=== PATIENT | female | born 1990 | race African-American/Black ===

== ENCOUNTER 2021-07-07 11:51 | Emergency (ER) | payer MEDICAID ==
[2021-07-07] MEDS ORDERED: Sodium Chloride 0.9% 10 ML Syringe FLUSH PRN (12:21)
[2021-07-07] MEDS ORDERED: Alum Hydroxide/Mag Hydroxide 15 ML, Lidocaine 2% 15 ML PO ONE ×2 (12:23)
[2021-07-07] MEDS ORDERED: Ondansetron 4 MG/2 ML SDV IVPUSH STA (12:23)
[2021-07-07] MEDS ORDERED: Prochlorperazine 10 MG in Sodium Chloride 0.9% 50 ML IV STA (12:23)
--- NOTE | 2021-07-07 12:29 | EDM.PDOC ---
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 She has a history of hyperemesis gravidarum and she is taking Zofran ODT 4 mg and Phenergan 25. he also had vaginal spotting for 2 days which resolved. There is no fever, chills, cough/cold. 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 - Infectious Disease History Infectious Disease History: Reports: None Social & Family History - Tobacco Use Tobacco Use Status *Q: Unknown Ever Used Tobacco - Caffeine Use Caffeine Use: Reports: None ED ROS GENERAL - Review of Systems Review Of Systems: See Below Constitutional: Reports: No Symptoms HEENT: Reports: No Symptoms Respiratory: Reports: No Symptoms Cardiovascular: Reports: No Symptoms Endocrine: Reports: No Symptoms GI/Abdominal: Reports: Nausea, Vomiting : Reports: No Symptoms Musculoskeletal: Reports: No Symptoms Skin: Reports: No Symptoms ED EXAM - Physical Exam Exam: See Below Exam Limited By: No Limitations General Appearance: Alert, No Apparent Distress Ears: Normal External Exam, Normal Canal Nose: Normal Inspection, Normal Mucosa, No Blood Throat/Mouth: Normal Inspection Head: Atraumatic, Normocephalic Neck: Normal Inspection, Supple, Non-Tender, Full Range of Motion Respiratory/Chest: No Respiratory Distress, Lungs Clear, Normal Breath Sounds, No Accessory Muscle Use, Chest Non-Tender Cardiovascular: Normal Peripheral Pulses, Regular Rate, Rhythm, No Edema, No Gallop, No JVD, No Murmur GI/Abdominal Exam: Normal Bowel Sounds, Soft, Non-Tender, No Organomegaly, No Distention, No Abnormal Bruit Course - Vital Signs Text/Narrative:: lab result was reviewed and discussed with patient NS 2 L bolus Zofran 4 mg IV x1 Compazine 10 mg IV x1 TUMS 2 tabs chew and swallow OB US-see result Last Recorded V/S: Last Vital Signs Temp 36.8 C 07/07/21 11:54 Pulse 79 07/07/21 11:54 Resp 16 07/07/21 11:54 BP 136/82 07/07/21 11:54 Pulse Ox 98 07/07/21 11:54 - Orders/Labs/Meds Orders: Active Orders 24 hr Category Date Time Status Saline Lock Insert [OM.PC] Routine Oth 07/07/21 12:21 Ordered Labs: Laboratory Tests 07/07/21 07/07/21 07/07/21 Range/Units 13:24 13:24 14:30 WBC 11.8 H (3.0-10.3) x10-3/uL RBC 4.50 (3.60-5.20) x10(6)uL Hgb 12.0 (11.4-15.5) g/dL Hct 37.1 (34.2-48.2) % MCV 82.4 (76.7-100.5) fL MCH 26.6 (23.9-33.9) pg MCHC 32.3 (31.9-34.8) g/dL RDW 13.4 (12.3-16.5) % Plt Count 282 (151-488) x10(3)uL MPV 7.8 (7.1-12.4) fL Neut % (Auto) 84.5 H (30.8-76.2) % Lymph % (Auto) 9.0 L (18.4-52.1) % [place] % (Auto) 6.3 (4.4-15.7) % Eos % (Auto) 0.0 L (0.6-8.1) % Baso % (Auto) 0.2 (0.2-1.5) % Neut # (Auto) 10.0 H (1.5-6.3) x10-3/uL Lymph # (Auto) 1.1 (1.0-4.4) x10-3/uL [place] # (Auto) 0.7 (0.3-1.0) x10-3/uL Eos # (Auto) 0.0 (0.0-0.8) x10-3/uL Baso # (Auto) 0.0 (0.0-0.1) x10-3/uL Sodium 137 (135-145) mmol/L Potassium 3.8 (3.5-5.3) mmol/L Chloride 101 (100-110) mmol/L Carbon Dioxide 13 L (21-32) mmol/L BUN 3 L (7-18) mg/dL Creatinine 0.7 (0.55-1.02) mg/dL Est Cr Clr Drug Dosing 105.74 mL/min Estimated GFR (MDRD) > 60 (>60) BUN/Creatinine Ratio 4.3 L (9-20) Glucose 91 (80-116) mg/dL Calcium 9.8 (8.6-10.2) mg/dL Urine Color Yellow (YELLOW) Urine Appearance Slightly cloudy (CLEAR) Urine pH 5.0 (5.0-6.5) Ur Specific [place] 1.030 H (1.010-1.025) Urine Protein 30 H (NEGATIVE) mg/dL Urine Glucose (UA) Normal (NORMAL) mg/dL Urine Ketones 150 H (NEGATIVE) mg/dL Urine Occult Blood Moderate H (NEGATIVE) Urine Nitrite Negative (NEGATIVE) Urine Bilirubin Negative (NEGATIVE) Urine Urobilinogen 1 H (NEGATIVE) mg/dL Ur Leukocyte Esterase Negative (NEGATIVE) Urine RBC 0-5 (0-5) Urine WBC 0-5 (0-5) Ur Squamous Epith Cells Moderate H (NS,R,O) Urine Bacteria Moderate H (NS) Coarse Granular Casts Few H (NS) Meds: Medications Discontinued Medications Generic Name Dose Route Start Last Admin Trade Name Freq PRN Reason Stop Dose Admin Calcium Carbonate/Glycine 2,000 mg 07/07/21 14:17 07/07/21 14:21 Calcium Carbonate 500 Mg Tab.Chew PO 07/07/21 14:18 2,000 mg ONETIME ONE Administration Al Hydroxide/Mg Hydroxide 15 0 ml 07/07/21 12:23 07/07/21 13:09 ml/ Lidocaine HCl 15 ml PO 07/07/21 12:24 15 ml ONETIME ONE Administration Sodium Chloride 2,000 mls @ 999 mls/hr 07/07/21 12:30 07/07/21 13:07 Normal Saline IV 999 mls/hr ASDIRECTED MAGGIE Administration Prochlorperazine Edisylate 10 52 mls @ 150 mls/hr 07/07/21 12:23 07/07/21 13:07 mg/ Sodium Chloride IV 07/07/21 12:43 150 mls/hr NOW STA Administration Ondansetron HCl 4 mg 07/07/21 12:23 07/07/21 13:07 Ondansetron 4 Mg/2 Ml Sdv IVPUSH 07/07/21 12:24 4 mg NOW STA Administration Sodium Chloride 10 ml 07/07/21 12:21 07/07/21 13:07 Sodium Chloride 0.9% 10 Ml Syringe FLUSH 10 ml ASDIRECTED PRN Administration Keep Vein Open Departure - Departure Time of Disposition: 15:00 Disposition: Home, Self-Care 01 Condition: Good Clinical Impression: Hyperemesis gravidarum, Spotting affecting in second trimester, GERD (gastroesophageal reflux disease) - Discharge Information Prescriptions: Promethazine [Phenergan] 25 mg PO Q8H PRN #30 tab PRN Reason: Nausea Ondansetron [Zofran ODT] 4 mg PO Q4H PRN #10 tab.dis PRN Reason: Nausea Instructions: Hyperemesis Gravidarum, Vaginal Bleeding During , First Trimester, [id number] Referrals: PCP,None [Primary Care Provider] - Forms: ED Department Discharge Additional Instructions: Please read discharge instructions on hyperemesis gravidarum and spotting during prenancy [place] diet TUMS extra strength, chew and swallow 2-3 tablets as needed whenever you have a heart burn Zofran ODT 4 mg every 4 hours as needed for nausea Phenergan 25 mg every 8 hours as needed for nausea Follow up with your OB doctor this week. Sepsis Event Note (ED) - Evaluation Sepsis Screening Result: No Definite Risk - Focused Exam Vital Signs: Vital Signs Temp Pulse Resp BP Pulse Ox 07/07/21 11:54 36.8 C 79 16 136/82 98 - My Orders Last 24 Hours: My Active Orders 07/07/21 12:21 Saline Lock Insert [OM.PC] Routine - Assessment/Plan Last 24 Hours: My Active Orders 07/07/21 12:21 Saline Lock Insert [OM.PC] Routine
[2021-07-07] MEDS ORDERED: Sodium Chloride 0.9% 2,000 ML IV SCH (12:30)
--- NOTE | 2021-07-07 13:55 | US ---
INDICATION: Vaginal bleeding and cramping. OB ULTRASOUND, LIMITED: Multiple ultrasonic images with M-mode and 2D were obtained, 07/07/21 - no comparisons. A single intrauterine gestation was noted with longitudinal lie presentation, spine on the maternal left. Normal amount of amniotic fluid is seen. Placenta is posterior, grade I, without evidence of previa or abruption. The cervix was unremarkable. The cervix measured 4.0 cm. The heart rate was regular at 157 BPM. BPD, head circumference, abdominal circumference and femur length measurements were compatible with an average ultrasound gestational age of 24 weeks, 5 days, which is only 3 days ahead of the LMPEGA of 24 weeks, 2 days. The LMP for this patient is 01/18/21. The ARTURO by LMP is 10/27/21. The ARTURO by ultrasound is 10/22/21. IMPRESSION: Essentially normal IUP. No bleeding site is identified. Normal- appearing gestation of approximately 24 weeks, 5 days, only 3 days ahead of the LMPEGA. Report was called to Dr. Rico immediately after the examination was completed. MTDD
[2021-07-07] MEDS ORDERED: Calcium Carbonate 500 MG Tab.Chew PO ONE (14:17)
== END 2021-07-07 15:28 | disposition home or self-care (01) ==
LOC: FB.ED 11:51
DX: O21.0 Mild hyperemesis gravidarum (principal); O99.612 Diseases of the digestive system complicating pregnancy, second trimester; K21.9 Gastro-esophageal reflux disease without esophagitis; O26.852 Spotting complicating pregnancy, second trimester; Z3A.24 24 weeks gestation of pregnancy
CPT/HCPCS: 36415; 76815; 80048; 81001; 85025; 96365; 96375; 99284; A9270; J0780; J2405; J7030

== ENCOUNTER 2021-07-10 13:49 | Emergency (ER) | payer MEDICAID ==
[2021-07-10] MEDS ORDERED: Sodium Chloride 0.9% 10 ML Syringe FLUSH PRN (13:56)
[2021-07-10] MEDS ORDERED: Ondansetron 4 MG/2 ML SDV IVPUSH ONE (13:56)
[2021-07-10] MEDS ORDERED: Prochlorperazine 10 MG/2 ML SDV IVPUSH ONE (13:56)
[2021-07-10] MEDS ORDERED: Sodium Chloride 0.9% 2,000 ML IV SCH (14:00)
[2021-07-10] MEDS ORDERED: LORazepam 2 MG/ML SDV IVPUSH STA (14:08)
--- NOTE | 2021-07-10 14:25 | EDM.PDOC ---
ED HPI GENERAL MEDICAL PROBLEM - General Stated Complaint: VAGINAL BLEEDING Time Seen by Provider: 07/10/21 13:50 Source of Information: Reports: Patient, EMS History Limitations: Reports: No Limitations - History of Present Illness INITIAL COMMENTS - FREE TEXT/NARRATIVE: Patient is a 30 YO at approximately 26 weeks and 1/7 age of gestation who presented to the ED because of vaginal bleeding and cramping as if she feels like she is in early labor. She was seen in our ED 4 days ago because of persistent nausea,vomiting, vaginal spotting. She was given IVF hydration and IV antiemetics and her nausea was better and the spotting stopped. Today, she had menses-like vaginal bleeding with cramping. 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 - Infectious Disease History Infectious Disease History: Reports: None Social & Family History - Caffeine Use Caffeine Use: Reports: None ED ROS GENERAL - Review of Systems Review Of Systems: See Below Constitutional: Reports: No Symptoms HEENT: Reports: No Symptoms Respiratory: Reports: No Symptoms Cardiovascular: Reports: No Symptoms Endocrine: Reports: No Symptoms GI/Abdominal: Reports: Nausea, Vomiting Musculoskeletal: Reports: No Symptoms Skin: Reports: No Symptoms Neurological: Reports: No Symptoms ED EXAM - Physical Exam Exam: See Below Exam Limited By: No Limitations General Appearance: Alert, No Apparent Distress Eye Exam: Bilateral Eye: PERRL Ears: Normal External Exam, Normal Canal Nose: Normal Inspection, Normal Mucosa, No Blood Throat/Mouth: Normal Inspection, Normal Lips, Normal Teeth Head: Atraumatic, Normocephalic Neck: Normal Inspection, Supple, Non-Tender, Full Range of Motion Respiratory/Chest: No Respiratory Distress, Lungs Clear, Normal Breath Sounds, No Accessory Muscle Use, Chest Non-Tender Cardiovascular: Normal Peripheral Pulses, Regular Rate, Rhythm, No Edema, No Gallop GI/Abdominal Exam: Normal Bowel Sounds, Soft, Non-Tender, No Organomegaly, No Distention, No Abnormal Bruit, Other (FHT 140's) Course - Vital Signs Text/Narrative:: Lab-pending NS 2 L bolus Zofran 4 mg IV x1 Ativan 1 mg IV x1 Compazine 10 mg IV x1 Pepcid 20 mg IV x1 case was discussed with Dr Dueñas - Orders/Labs/Meds Orders: Active Orders 24 hr Category Date Time Status Sodium Chloride 0.9% [Normal Saline] 2,000 ml Med 07/10/21 14:00 Active IV ASDIRECTED Sodium Chloride 0.9% [Saline Flush] Med 07/10/21 13:56 Active 10 ml FLUSH ASDIRECTED PRN Saline Lock Insert [OM.PC] Routine Oth 07/10/21 13:56 Ordered Medication Orders Sodium Chloride (Normal Saline) 2,000 mls @ 999 mls/hr IV ASDIRECTED MAGGIE Last Admin: 07/10/21 14:19 Dose: 999 mls/hr Documented by: MERARI Sodium Chloride (Sodium Chloride 0.9% 10 Ml Syringe) 10 ml FLUSH ASDIRECTED PRN PRN Reason: Keep Vein Open Labs: Laboratory Tests 07/10/21 07/10/21 Range/Units 14:35 14:35 WBC 8.0 (3.0-10.3) x10-3/uL RBC 4.45 (3.60-5.20) x10(6)uL Hgb 12.0 (11.4-15.5) g/dL Hct 36.0 (34.2-48.2) % MCV 80.8 (76.7-100.5) fL MCH 26.9 (23.9-33.9) pg MCHC 33.4 (31.9-34.8) g/dL RDW 13.0 (12.3-16.5) % Plt Count 210 (151-488) x10(3)uL MPV 7.7 (7.1-12.4) fL Neut % (Auto) 79.1 H (30.8-76.2) % Lymph % (Auto) 13.4 L (18.4-52.1) % Kay % (Auto) 7.0 (4.4-15.7) % Eos % (Auto) 0.1 L (0.6-8.1) % Baso % (Auto) 0.4 (0.2-1.5) % Neut # (Auto) 6.3 (1.5-6.3) x10-3/uL Lymph # (Auto) 1.1 (1.0-4.4) x10-3/uL Kay # (Auto) 0.6 (0.3-1.0) x10-3/uL Eos # (Auto) 0.0 (0.0-0.8) x10-3/uL Baso # (Auto) 0.0 (0.0-0.1) x10-3/uL Sodium 136 (135-145) mmol/L Potassium 2.5 L* D (3.5-5.3) mmol/L Chloride 100 (100-110) mmol/L Carbon Dioxide 20 L (21-32) mmol/L BUN 3 L (7-18) mg/dL Creatinine 0.6 (0.55-1.02) mg/dL Est Cr Clr Drug Dosing TNP Estimated GFR (MDRD) > 60 (>60) BUN/Creatinine Ratio 5.0 L (9-20) Glucose 100 (80-116) mg/dL Calcium 9.3 (8.6-10.2) mg/dL Meds: Medications Generic Name Dose Route Start Last Admin Trade Name Freq PRN Reason Stop Dose Admin Sodium Chloride 2,000 mls @ 999 mls/hr 07/10/21 14:00 07/10/21 14:19 Normal Saline IV 999 mls/hr ASDIRECTED MAGGIE Administration Sodium Chloride 10 ml 07/10/21 13:56 Sodium Chloride 0.9% 10 Ml Syringe FLUSH ASDIRECTED PRN Keep Vein Open Discontinued Medications Generic Name Dose Route Start Last Admin Trade Name Freq PRN Reason Stop Dose Admin Famotidine 20 mg 07/10/21 14:33 07/10/21 14:40 Famotidine 20 Mg/2 Ml Sdv IVPUSH 07/10/21 14:34 20 mg NOW STA Administration Lorazepam 1 mg 07/10/21 14:08 07/10/21 14:20 Lorazepam 2 Mg/Ml Sdv IVPUSH 07/10/21 14:09 1 mg NOW STA Administration Ondansetron HCl 4 mg 07/10/21 13:56 07/10/21 14:18 Ondansetron 4 Mg/2 Ml Sdv IVPUSH 07/10/21 13:57 4 mg ONETIME ONE Administration Prochlorperazine Edisylate 10 mg 07/10/21 13:56 07/10/21 14:18 Prochlorperazine 10 Mg/2 Ml Sdv IVPUSH 07/10/21 13:57 10 mg ONETIME ONE Administration Departure - Departure Time of Disposition: 14:30 Disposition: DC/Tfer to [facility] 02 Condition: Good Clinical Impression: Vaginal bleeding in , GERD (gastroesophageal reflux disease), Nausea and vomiting during - Discharge Information Referrals: PCP,None [Primary Care Provider] - - My Orders Last 24 Hours: My Active Orders 07/10/21 13:56 Sodium Chloride 0.9% [Saline Flush] 10 ml FLUSH ASDIRECTED PRN Saline Lock Insert [OM.PC] Routine 07/10/21 14:00 Sodium Chloride 0.9% [Normal Saline] 2,000 ml IV ASDIRECTED - Assessment/Plan Last 24 Hours: My Active Orders 07/10/21 13:56 Sodium Chloride 0.9% [Saline Flush] 10 ml FLUSH ASDIRECTED PRN Saline Lock Insert [OM.PC] Routine 07/10/21 14:00 Sodium Chloride 0.9% [Normal Saline] 2,000 ml IV ASDIRECTED
[2021-07-10] MEDS ORDERED: Famotidine 20 MG/2 ML SDV IVPUSH STA (14:33)
== END 2021-07-10 14:45 ==
LOC: FB.ED 13:49
DX: O46.92 Antepartum hemorrhage, unspecified, second trimester (principal); O21.2 Late vomiting of pregnancy; O99.612 Diseases of the digestive system complicating pregnancy, second trimester; K21.9 Gastro-esophageal reflux disease without esophagitis; Z3A.26 26 weeks gestation of pregnancy
CPT/HCPCS: 36415; 80048; 85025; 96374; 96375; 99285; J0780; J2060; J2405; J3490; J7030

== ENCOUNTER 2024-09-15 16:41 | Emergency (ER) | payer MEDICAID ==
[2024-09-15 17:26] LABS: BASOPHILS PERCENT AUTO 0.5 % (0.2-1.5); EOSINOPHILS ABSOLUTE AUTO 0.1 x10-3/uL (0.0-0.8); EOSINOPHILS PERCENT AUTO 0.7 % (0.6-8.1); HEMATOCRIT 36.4 % (34.2-48.2); HEMOGLOBIN 11.7 g/dL (11.4-15.5); LYMPHOCYTES ABSOLUTE AUTO 2.5 x10-3/uL (1.0-4.4); LYMPHOCYTES PERCENT AUTO 30.7 % (18.4-52.1); MEAN CORPUSCULAR HEMOGLOBIN 25.5 pg (23.9-33.9); MEAN CORPUSCULAR HGB CONC 32.2 g/dL (31.9-34.8); MEAN CORPUSCULAR VOLUME 79.1 fL (76.7-100.5); MONOCYTES ABSOLUTE AUTO 0.6 x10-3/uL (0.3-1.0); MONOCYTES PERCENT AUTO 7.1 % (4.4-15.7); NEUTROPHILS ABSOLUTE AUTO 4.9 x10-3/uL (1.5-6.3); PLATELET COUNT,PLT 296 x10(3)uL (151-488); RED CELL DISTRIBUTION WIDTH 14.4 % (12.3-16.5); WHITE BLOOD CELL COUNT,WBC 8.1 x10-3/uL (3.0-10.3)
[2024-09-15 17:29] LABS: BLOOD UREA NITROGEN,BUN 11 mg/dL (7-18); BUN/CREATININE RATIO 9.2 (9-20); CALCIUM 9.3 mg/dL (8.6-10.2); CARBON DIOXIDE,CO2 29 mmol/L (21-32); CHLORIDE,CL 100 mmol/L (100-110); CREATININE 1.2 mg/dL (0.55-1.02); EST CRCL DRUG DOSING (CG) 59.44 mL/min; ESTIMATED GFR 61 mL/min (>60); GLUCOSE RANDOM 87 mg/dL (80-116); POTASSIUM,K 3.9 mmol/L (3.5-5.3); SODIUM,NA 138 mmol/L (135-145)
[2024-09-15 17:35] LABS: A/G RATIO 0.8; ALANINE AMINOTRANSFERASE,ALT 21 U/L (12-36); ALBUMIN 3.5 g/dL (3.5-5.2); ALKALINE PHOSPHATASE 86 IU/L (56-112); ASPARTATE AMNIOTRANSFERASE,AST 15 IU/L (5-25); BILIRUBIN TOTAL 0.4 mg/dL (0.1-1.3); PROTEIN TOTAL,TP 8.1 g/dL (6.0-8.0)
[2024-09-15] MEDS: Sodium Chloride 0.9% 1,000 ML IV ONE (17:41)
[2024-09-15 17:58] LABS: BILIRUBIN,URINE NEGATIVE (NEGATIVE); GLUCOSE,URINE NORMAL (NORMAL); KETONES,URINE NEGATIVE (NEGATIVE); LEUKOCYTE ESTERASE,URINE NEGATIVE (NEGATIVE); NITRITE,URINE NEGATIVE (NEGATIVE); OCCULT BLOOD,URINE NEGATIVE (NEGATIVE); PROTEIN,URINE NEGATIVE (NEGATIVE); UROBILINOGEN,URINE NORMAL (NEGATIVE)
[2024-09-15] MEDS: Ondansetron 4 MG/2 ML SDV IVPUSH ONE (17:58)
[2024-09-15 17:59] LABS: APPEARANCE,URINE CLEAR (CLEAR); COLOR,URINE YELLOW (YELLOW)
== END 2024-09-15 19:00 | disposition home or self-care (01) ==
LOC: FB.ED 16:41
DX: R42 Dizziness and giddiness (principal); Z79.899 Other long term (current) drug therapy
CPT/HCPCS: 36415; 73610; 80053; 81003; 81025; 83735; 84443; 85025; 87428; 96361; 96374; 99284; J2405